=== PATIENT | female | born 1940 | race Caucasian/White ===

== ENCOUNTER 2018-02-07 10:46 | Emergency (ER) | payer MEDICARE, OTHER ==
[~2018-02-07] VITALS: Ht 154.9 cm; Wt 61.0 kg
[~2018-02-07 10:46] MED LIST: CARDIA XT PO; CELE200 PO; CIPR500T2 PO; COUM5TAB PO; PYRI200T4 PO; TRAZ50TA78 PO
[2018-02-07] MEDS ORDERED: PRED20 PO (11:23)
[2018-02-07] MEDS ORDERED: ZANT150T2 PO (11:25)
--- NOTE | 2018-02-07 11:25 | PD ---
HPI Chief Complaint: Rash Time Seen by Provider: 11:12 Travel History International Travel<30 days: No Contact w/Intl Traveler<30days: No History of Present Illness HPI 77-year-old female presents to the emergency department for evaluation of an itchy rash to her bilateral hips and thighs for 1 week. No pain. No fevers or chills. No difficulty swallowing or breathing. Patient states she has taken Zyrtec at home as well as used a steroid cream without improvement. She states she is concerned that it could be shingles. She reports history of A. fib, hypertension, hyperlipidemia. She is currently on Pradaxa. No exacerbating or alleviating factors. Mild severity. PFSH Past Medical History Arthritis: Yes Atrial Fibrillation: Yes Past Surgical History Hysterectomy: Yes Tonsillectomy: Yes Social History Alcohol Use: No Tobacco Use: No Substance Use: No Allergies-Medications (Allergen,Severity, Reaction): Coded Allergies: No Known Allergies (Verified , 12/04/09) Reported Meds & Prescriptions Reported Meds & Active Scripts Active Pyridium (Phenazopyridine HCl) 200 Mg Tab 1 Tab PO TIDPRN NEEDED FOR BURNING WITH URINATION Cipro (Ciprofloxacin) 500 Mg Tab 1 Tab PO BID Reported [Cardia Xt] 180 Mg PO DAILY Desyrel (Trazodone HCl) 50 Mg Tab 50 Mg PO HSPRN Coumadin (Warfarin Sodium) 5 Mg Tab 5 Mg PO DAILY Celebrex (Celecoxib) 200 Mg Cap 200 Mg PO DAILY Review of Systems Except as stated in HPI: all other systems reviewed are Neg Physical Exam Narrative GENERAL: Well-nourished, well-developed elderly female patient, ambulatory. Afebrile SKIN: Focused skin assessment warm/dry. Patient has erythematous plaques to bilateral hips and thighs consistent with urticaria. No vesicles or evidence of herpes zoster. HEAD: Normocephalic. Atraumatic EYES: No scleral icterus. No injection or drainage. NECK: Supple, trachea midline. No JVD or lymphadenopathy. CARDIOVASCULAR: Regular rate and rhythm without murmurs, gallops, or rubs. RESPIRATORY: Breath sounds equal bilaterally. No accessory muscle use. Lung sounds are clear to auscultation GASTROINTESTINAL: Abdomen soft, non-tender, nondistended. MUSCULOSKELETAL: No cyanosis, or edema. Data Data Orders Orders Dexamethasone Inj (Decadron Inj) (02/07/18 11:30) Famotidine (Pepcid) (02/07/18 11:30) Diphenhydramine (Benadryl) (02/07/18 11:30) MDM Medical Decision Making Medical Screen Exam Complete: Yes Emergency Medical Condition: Yes Medical Record Reviewed: Yes Differential Diagnosis Urticaria versus contact dermatitis versus allergic reaction Narrative Course 77-year-old female presents to the emergency department for evaluation of itchy rash. Physical exam is consistent with urticaria. Patient is given dexamethasone 8 mg IM, Pepcid 20 mg p.o., Benadryl 25 mg p.o. She is instructed to continue Zyrtec or Benadryl [id number] as needed for itching. She states that she has Zantac at home that she will start. She will be given a prescription for prednisone. She is encouraged to follow with her primary care physician. She is return here for any acute worsening of symptoms. The patient was discharged in stable condition with instructions, including return instructions and follow up instructions. Diagnosis Primary Impression: Urticaria Referrals: Primary Care Physician call for appointment Patient Instructions: General Instructions, Urticaria (ED) Additional Instructions: Continue Benadryl or Zyrtec [id number] as needed for itching. Continue your cream on rash. Take Zantac twice daily. Take Benadryl as directed. Start this tomorrow. Follow-up with a primary care physician. Return to the emergency department for any acute worsening of symptoms. Med/Other Pt SpecificInfo: Prescription(s) given Scripts Ranitidine (Zantac) 150 Mg Tab 150 MG PO BID for Reduce Stomach Acid for 5 Days, #10 TAB 0 Refills Prov: Ariane Garcia 02/07/18 Prednisone (Prednisone) 20 Mg Tab 40 MG PO DAILY, #10 TAB 0 Refills Take 40 mg (2 tablets) daily for 5 days Prov: Ariane Garcia 02/07/18 Disposition: 01 DISCHARGE HOME Condition: Stable Ariane Garcia Feb 07, 2018 11:25
[2018-02-07] MEDS ORDERED: FAMOTIDINE 20 MG TAB PO ONE (11:30)
[2018-02-07] MEDS ORDERED: DEXAMETHASONE SOD PHOS 4 MG/ML VIAL IM ONE (11:30)
[2018-02-07] MEDS ORDERED: diphenhydrAMINE HCL 25 MG CAP PO ONE (11:30)
[2018-02-07 11:33] VITALS: BP 138/69; PULSE 90; RESP 16; TEMP 98; O2SAT 97
[2018-02-07] MEDS ORDERED: PRAD150C PO (11:37)
[2018-02-07] MEDS ORDERED: METO25TA3 PO (11:37)
[2018-02-07] MEDS ORDERED: PRAV40TA2 PO (11:37)
== END 2018-02-07 12:13 | disposition home or self-care (01) ==
LOC: PHEFT 10:46
DX: L50.9 Urticaria, unspecified (principal); M19.90 Unspecified osteoarthritis, unspecified site; I48.91 Unspecified atrial fibrillation; E78.5 Hyperlipidemia, unspecified; I10 Essential (primary) hypertension; Z79.01 Long term (current) use of anticoagulants; Z79.899 Other long term (current) drug therapy
CPT/HCPCS: 96372; 99283; J1100